=== PATIENT | female | born 2005 | race Two or more races ===

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

== ENCOUNTER 2025-02-05 15:12 | Emergency (ER) | payer SELFPAY ==
[2025-02-05 15:18] VITALS: BP 131/73; PULSE 102; RESP 16; TEMP 36.8; O2SAT 97
--- NOTE | 2025-02-05 15:34 | ED_ITS ---
HPI - Ear Problem General Chief complaint: Ear Stated complaint: headache/right ear pain Time Seen by Provider: 02/05/25 15:34 Source: patient Mode of arrival: ambulatory Limitations: no limitations History of Present Illness HPI Narrative: 19-year-old female presented for complaint of sore throat and right ear pain and headache. Onset yesterday. Not taking anything for symptoms. Denies shortness of breath, wheezing, nausea, vomiting, dizziness, tinnitus or fever. MD Complaint: ear pain Related Data Home Medications ?Medication ?Instructions ?Recorded ?Confirmed ?Last Taken ?Type guanfacine 1 mg tablet 1 mg PO QID PRN Cough 08/29/22 02/05/25 Unknown History methylphenidate HCl 54 mg 54 mg PO DAILY 08/29/22 02/05/25 Unknown History tablet,extended release 24 hr (Concerta) quetiapine 100 mg tablet 100 mg PO DAILY 08/29/22 02/05/25 Unknown History quetiapine 25 mg tablet 25 mg PO DAILY 08/29/22 02/05/25 Unknown History norgestimate 0.25 mg-ethinyl tablet 03/15/24 Unknown History estradiol 0.035 mg tablet (Estarylla) Allergies Allergy/AdvReac Type Severity Reaction Status Date / Time No Known Allergies Allergy Verified 02/05/25 15:14 Review of Systems Review of Systems: CONSTITUTIONAL: Denies malaise, chills, or fever. EYES: Denies visual changes, redness, or discharge. ENT: Denies rhinorrhea, congestion, sinus pain, Reports ear pain, sore throat CARDIOVASCULAR: Denies chest pain, palpitations, or edema. RESPIRATORY: Denies cough or dyspnea. GASTROINTESTINAL: Denies abdominal pain, nausea, vomiting, diarrhea SKIN: Denies rash or itching. MUSCULOSKELETAL: Denies myalgia. NEUROLOGIC: reports headache. All systems reviewed & are unremarkable except as noted in HPI and below PMFSH Past Medical History Medical History ADHD (attention deficit hyperactivity disorder) Bipolar 1 disorder, mixed Oppositional defiant disorder Social History Social History Living arrangements: with family Occupation/Education: student Gender identity (if verbalized by the patient): Female Comments At time of signature, agree with nursing past medical, surgical, social and family history. There is no relevant family history pertinent to the presenting complaint Exam Narrative: GENERAL: Well-appearing EYES: conjunctivae clear ENT: Nares clear. Mucous membranes moist. TM pearly cannon with dull light reflex bilaterally; no tragal tenderness. Oropharynx erythematous without lesions. Tonsils enlarged with exudate, no drooling, no hoarseness, no trismus, uvula midline. NECK: Supple. No lymphadenopathy CHEST: Clear to auscultation, breath sounds equal. No wheezing, rhonchi, rales, or stridor. No respiratory distress, speaks in full sentences. HEART: Regular rate and rhythm. No murmur heard. SKIN: Warm, dry, no rash. NEURO: Alert and oriented x3. PSYCH: Normal mood and affect Course Course Emergency Course: Patient is aware of diagnosis, understands and agrees to treatment plan. Anticipatory guidance given. Patient agrees to follow-up as directed and is aware of reasons to seek care at the emergency department. Portions of this record may have been created with voice recognition software Level of Care: Express Care Visit Vital Signs Vital signs: Vital Signs Temperature 98.2 F 02/05/25 15:18 Pulse Rate 102 H 02/05/25 15:18 Respiratory Rate 16 02/05/25 15:18 Blood Pressure 131/73 02/05/25 15:18 Pulse Oximetry 97 02/05/25 15:18 Oxygen Delivery Room Air 02/05/25 15:18 Temperature 98.2 F 02/05/25 15:18 Pulse Rate 102 H 02/05/25 15:18 Respiratory Rate 16 02/05/25 15:18 Blood Pressure 131/73 02/05/25 15:18 Pulse Oximetry 97 02/05/25 15:18 Oxygen Delivery Room Air 02/05/25 15:18 Reviewed Medical Decision Making MDM Narrative Medical decision making narrative: Negative strep in clinic, however will treat at this time based on PE and CC. Advised supportive measures and signs/symptoms to go to the ER. Patient is appropriate for outpatient treatment and follow-up. Differential Diagnosis Differential Diagnosis: Coronavirus, strep pharyngitis, allergic rhinitis, upper respiratory tract infection, sinusitis, rhinosinusitis, nasopharyngitis, viral pharyngitis, otitis media, otitis externa, eustachian tube dysfunction, foreign body, cerumen impaction. Vital Signs Vital Signs: Vital Signs Temperature 98.2 F 02/05/25 15:18 Pulse Rate 102 H 02/05/25 15:18 Respiratory Rate 16 02/05/25 15:18 Blood Pressure 131/73 02/05/25 15:18 Pulse Oximetry 97 02/05/25 15:18 Oxygen Delivery Room Air 02/05/25 15:18 Temperature 98.2 F 02/05/25 15:18 Pulse Rate 102 H 02/05/25 15:18 Respiratory Rate 16 02/05/25 15:18 Blood Pressure 131/73 02/05/25 15:18 Pulse Oximetry 97 02/05/25 15:18 Oxygen Delivery Room Air 02/05/25 15:18 Discharge Plan Discharge Clinical Impression: Exudative tonsillitis Patient Disposition: Home, Self-Care Condition: Stable Instructions: Antibiotic Form, Strep Throat (ED) Additional Instructions: - Take the antibiotic as directed. Fever and sore throat typically resolve within one to three days. Most patients can return to work, after 12 to 24 hours of antibiotic therapy, provided you are fever free and otherwise well. -Eat and drink things that are easy to swallow, like soft foods, cool liquids, tea with honey, or popsicles . -Salt water gargles and/or may use topical anesthetic ( Chloraseptic spray) or l ozenges to relieve dryness or throat pain -Alternate Tylenol and ibuprofen as needed for pain and fever as directed. -Frequent hand washing or hand chip mixing machine operator is one of the best ways to prevent spread of infection. Throw away the toothbrush after 24hours of antibiotic. -Follow up with primary care provider in 2-3 days if condition is not improving -Go to the ER if you have trouble breathing, cannot drink enough fluids, have muffled voice or drooling, difficulty opening your mouth, or severe swelling. Patient Language: Danish Prescriptions: New amoxicillin 500 mg tablet 1,000 mg PO DAILY 10 Days Qty: 20 0RF No Action quetiapine 25 mg tablet 25 mg PO DAILY methylphenidate HCl [Concerta] 54 mg tablet extended release 24hr 54 mg PO DAILY quetiapine 100 mg tablet 100 mg PO DAILY guanfacine 1 mg tablet 1 mg PO QID PRN (Reason: Cough) norgestimate-ethinyl estradiol [Estarylla] 0.25-35 mg-mcg tablet Follow-up/Referrals: Yenifer,Cheryl Corbett MD [Primary Care Provider] - Time of Disposition: 15:50
[2025-02-05 15:57] LABS: EDSTREPNEGPOS1 Negative (Negative)
--- OUTSIDE RECORDS SUMMARY | 2025-02-05 16:29 | XMS_ITS | Clinical Summary ---
Author Organization [facility] Address [address] [place] [address] Care Team Providers Care Geriatric Case Manager Name Role Phone Cheryl Street MD Primary Care Provider [phone] Source Comments [facility],non-owned Affiliates and Associated Physician Practices is amultiple site organization consisting of ambulatory clinics and hospital sitesin [place], [place] and [place]. This disclosure is being madepursuant to the Care Everywhere program and may not contain all information available regarding this patient. Last updated 18.[facility] Allergies No known active allergies Medications * Be aware that medications may not be up to date on this document. Alwaysverify current medications with the patient. Medication Sig Dispensed Refills Start Date End Date Status guanFACINE CR 24hr (Intuniv) 1 MG tablet Take 2 (two) tablets by mouth 2 times daily Active Concerta 54 MG tablet 11/16/2022 Act kleber QUEtiapine (SEROquel) 100 MG tablet 11/16/2022 Active QUEtiapine (SEROquel) 25 MG tablet 11/17/2022 Active Mavyret 100-40 MG tablet TAKE 3 TABLETS BY MOUTH ONCE DAILY WITH FOOD FOR 56 DAYS. TAKE ALL 3 TABLETS AT THE SAME TIME 05/04/2023 Active Active Problems Problem Noted Date Diagnosed Date Anxiety disorder 05/15/2023 Depression 05/15/2023 Overweight 02/23/2023 Hepatitis C virus infection cured after antiviral drug therapy 02/23/2023 Resolved Problems Problem Noted Date Diagnosed Date Resolved Date Hepatitis C virus infection without hepatic coma 02/23/2023 08/16/2023 Family History Medical History Relation Name Comments Hepatitis Mother Relation Name Status Comments Mother Social History Tobacco Use Types Packs/Day Years Used Date Smoking Tobacco: Never Passive Smoke Exposure: Never Smokeless Tobacco: Never Tobacco Cessation:Counseling Given: No Alcohol Use Standard Drinks/Week Comments Never 0 (1 standard drink = 0.6 oz pur e alcohol) Sex and Gender Information Value Date Recorded Sex Assigned at Not on file Gender Identity Not on file Sexual Orientation Not on file Last Filed Vital Signs Vital Sign Reading Time Taken Comments Blood Pressure 122/64 05/15/2023 2:05 PM CDT Pulse - - Temperature - - Respiratory Rate - - Oxygen Saturation - - Inhaled Oxygen Concentration - - Weight 84.8 kg (187 lb) 05/15/2023 2:05 PM CDT Height 151 cm (4' 11.45 ) 05/15/2023 2:05 PM CDT Body Mass Index 37.2 05/15/2023 2:05 PM CDT Body Mass Index Percentile 98.37% 05/15/2023 2:0 5 PM CDT Growth Chart: [facility] (Girls, 2- 20 Years) Plan of Treatment Health Maintenance Due Date Last Done Comments HIV SCREENING 2020 HPV VACCINE (1 - 3-dose series) 2020 CHLAMYDIA/GONORRHEA SCREENING 2021 MENINGOCOCCAL (Group B) VACCINE SHARED DECISION-MAKING (1 of 2 - Standard) 2021 DTAP/TDAP/TD VACCINES (1 - Tdap) 2024 HEPATITIS B VACCINE (1 of 3 - 19+ 3-dose series) 2024 COVID-19 VACCINE (3 - 2023- season) 2024 07/06/2021, 06/15/2021 INFLUENZA VACCINE (#1) 2024 , 12/31/2019, 10/05/2018, Additional history exists DEPRESSION SCREENING 11/06/2024 ZOSTER VACCINE (1 of 2) 2055 HEPATITIS C SCREENING Completed 08/16/2023 , 05/15/2023, 02/23/2023, Additional history exists HIB VACCINE Aged Out No longer eligi ble based on patient's age to complete this topic MENINGOCOCCAL GROUPS A/C/Y/W VACCINE Aged Out No longer eligible based on patient's age to complete this topic PNEUMOCOCCAL VACCINE Aged Out No long er eligible based on patient's age to complete this topic Care Teams Geriatric Case Manager Relationship Specialty Start Date End Date Cheryl Street MD 2 [facility] [address] [place] [id number] PCP - General Pediatrics 11/24/22
--- OUTSIDE RECORDS SUMMARY | 2025-02-05 16:29 | XMS_ITS | Referral Summary ---
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 Gender Identity Not on file Sexual Orientation Not on file Last Filed Vital Signs Vital Sign Reading Time Taken Comments Blood Pressure 132/57 08/12/2023 9:20 AM CDT Pulse 87 08/12/2023 9:20 AM CDT Temperature 37.3 C (99.2 F) 08/12/2023 9:20 AM CDT Respiratory Rate 16 08/12/2023 9:20 AM CDT Oxygen Saturation 100% 08/12/2023 9:20 AM CDT Inhaled Oxygen Concentration - - Weight 81.2 kg (179 lb) 08/12/2023 9:20 AM CDT Height 162.6 cm (5' 4 ) 08/12/2023 9:20 AM CDT Body Mass Index 30.73 08/12/2023 9:20 AM CDT Body Mass Index Percentile 95.19% 08/12/2023 9:2 0 AM CDT Growth Chart: [facility] (Girls, 2- 20 Years) Plan of Treatment Not on file Procedures Procedure Name Priority Date/Time Associated Diagnosis Comments HEPATITIS C RNA, QUANTITATIVE, PCR Routine 08/12/2023 8:53 AM CDT from Last 3 Months or Most Recently Relevant to Health Maintenance Results * Hepatitis C (HCV) RNA PCR, quantitative Blood (08/12/2023 8:53 AM CDT) [facility] HCV RNA result Not Detected [facility] Comment: The quantifiable range of this assay is 15 IU/mL to 100,000,000 IU/mL (1.18 log IU/mL to 8.00 log IU/mL). Testing was performed by the [facility] HCV Test ([employer] Testing performed at [facility] Current Interpretive Data was last revised on 2021 Testing performed by: [facility], [address] [place]., [address] Blood 08/12/2023 8:53 AM CDT 08/14/2023 10:47 AM CDT Wolfgang Mccabe MD LAB MICROBIOLOGY - GENERAL ORDERABLES Final Result [facility] ([place]) [address] [facility] Department [place] [address] [facility] from Last 3 Months or Most Recently Relevant to Health Maintenance Insurance [facility] Care Teams C Software Engineer Relationship Specialty Start Date End Date Cheryl Street MD PCP - General 09/25/21
--- OUTSIDE RECORDS SUMMARY | 2025-02-05 16:29 | XMS_ITS | Clinical Summary ---
Author Organization [facility] Address [address] [place] [address] Care Team Providers Care Technical Sme Name Role Phone Cheryl Street MD Primary Care Pro vider Allergies No known active allergies Medications No known medications Active Problems No known active problems Medical History Medical History Date Comments Bipolar 1 disorder (HCC) Social History Tobacco Use Types Packs/Day Years Used Date Smoking Tobacco: Never Smokeless Tobacco: Never Personal Safety Answer Date Recorded Getting School Help Needed Not on file 08/25 Comments No Sex and Gender Information Value Date Recorded Sex Assigned at Not on file 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 Gender Identity Not on file Sexual Orientation Not on file Obstetrics History Growth Chart Information Age Height Weight [id number]-mweq th Percentile BMI Percentile Head Circum Head Circum Percentile Date 18 years 162.6 cm (5' 4 ) 81.2 kg (179 lb) 95.19%* 2022 16 years 152.4 cm (5') 62.1 kg (136 lb 14.5 oz) 91.20%* 2020 * [facility] (Girls, 2-20 Years) Last Filed Vital Signs Vital Sign Reading [...] 08/12/2023 9:2 0 AM CDT Growth Chart: [facility] (Girls, 2- 20 Years) Plan of Treatment Health Maintenance Due Date Last Done Comments Depression Screening 2005 Meningococcal B Vaccine (1 o f 2 - Standard) 2021 Regular Well Visit/Exam 18-64 2023 Covid-19 Vaccine (3 - 2023-2 5 season) 2024 07/06/2021, 06/15/2021 Influenza Vaccine (#1) 2024 , 12/31/2019, 10/05/2018, Additional history exists DTaP/Tdap/Td Vaccine (7 - Td or Tdap) 07/14/2025 07/14/2015, 02/09/2010, 10/13/2006, Additional history exists Hepatitis B Screening Completed 01/10/2006 , 2005, 2005, Additional history exists Pneumococcal vaccine <65 Completed 006, 01/10/2006, 2005, Additional history exists Varicella Vaccines Completed 02/09/2010, 07/14/2006 HPV Vaccines Completed 07/26/2017, 07/15/2016 Meningococcal Vaccine Completed 01/20/2023, 016 Hepatitis C Screening Completed 08/12/2023, 023 Procedures Procedure Name Priority Date/Time Associated Diagnosis Comments HEPATITIS C RNA, QUANTITATIVE, PCR Routine 08/12/2023 8:53 AM CDT from Last 3 Months or Most Recently Relevant to Health Maintenance Results * Hepatitis C (HCV) RNA PCR, quantitative Blood (08/12/2023 8:53 AM CDT) [facility] HCV RNA result Not Detected [facility] Comment: The quantifiable range of this assay is 15 IU/mL to 100,000,000 IU/mL (1.18 log IU/mL to 8.00 log IU/mL). Testing was performed by the [facility] HCV Test ([employer] Testing performed at [facility] Current Interpretive Data was last revised on 2021 Testing performed by: [facility], [address] [place]., [address] Blood 08/12/2023 8:53 AM CDT 08/14/2023 10:47 AM CDT Wolfgang Mccabe MD LAB MICROBIOLOGY - GENERAL ORDERABLES Final Result [facility] ([place]) [address] [facility] Department [place] [address] [facility] from Last 3 Months or Most Recently Relevant to Health Maintenance Insurance [place] [employer] [place] Care Teams Technical Sme Relationship Specialty Start Date End Date Cheryl Street MD PCP - General 09/25/21
--- OUTSIDE RECORDS SUMMARY | 2025-02-05 16:29 | XMS_ITS | Clinical Summary ---
Author Organization [facility] Address [address] [place] [address] Phone Care Team Providers Care International Accounting Manager Name Role Phone Cheryl Street MD Primary Care Provider [phone] Allergies No known active allergies Medications guanFACINE (INTUNIV) 1 mg Extended Release 24 hour tablet Take 2 mg by mouth 2 times daily. Active methylphenidate HCl (CONCERTA) 54 mg Extended Release tablet Take 54 mg by mouth daily in the morning. 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 Gender Identity Not on file Sexual Orientation Not on file Last Filed Vital Signs Vital Sign Reading Time Taken Comments Blood Pressure 117/62 09/15/2020 6:59 PM SURVEYOR HYDROGRAPHIC Pulse 78 09/15/2020 9:44 PM SURVEYOR HYDROGRAPHIC Temperature 37.3 C (99.1 F) 09/15/2020 6:59 PM SURVEYOR HYDROGRAPHIC Respiratory Rate 18 09/15/2020 9:44 PM SURVEYOR HYDROGRAPHIC Oxygen Saturation 98% 09/15/2020 9:44 PM SURVEYOR HYDROGRAPHIC Inhaled Oxygen Concentration - - Weight 53.2 kg (117 lb 4.6 oz) 09/15/2020 6:59 P M SURVEYOR HYDROGRAPHIC Height - - Body Mass Index - - Plan of Treatment Health Maintenance Due Date Last Done Comments CHLAMYDIA SCREENING (ANNUAL) 11-24 YEARS 2016 HPV VACCINES (1 - 3-dose series) 2020 INFLUENZA VACCINE (#1) 2024 DTAP/TDAP/TD VACCINES (1 - Tdap) 2024 HEPATITIS B VACCINES (1 of 3 - 19+ 3-dose series) 2024 PNEUMOCOCCAL VACCINE 0-49 YEARS Aged Out No longer eligible based on patient's age to complete this topic Insurance Care Teams International Accounting Manager Relationship Specialty Start Date End Date Cheryl Street MD PCP - General Pediatrics 09/15/20
== END 2025-02-05 15:54 | disposition home or self-care (01) ==
PROVIDERS: Emergency Provider Nurse Practitioner Family; PCP Pediatrics
DX: J03.90 Acute tonsillitis, unspecified (principal); F90.9 Attention-deficit hyperactivity disorder, unspecified type; F31.9 Bipolar disorder, unspecified
CPT/HCPCS: 87081; 87880; 99213; G0463

== ENCOUNTER 2025-06-07 13:01 | Emergency (ER) | payer SELFPAY ==
--- OUTSIDE RECORDS SUMMARY | 2025-06-07 13:03 | XMS_ITS | Clinical Summary ---
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 Gender Identity Not on file Sexual Orientation Not on file Obstetrics History Growth Chart Information Age Height Weight Oqstnj-[id number]-clvb th Percentile BMI Percentile Head Circum Head Circum Percentile Date 18 years 162.6 cm (5' 4) 81.2 kg (179 lb) 95.19%* 2022 16 years 152.4 cm (5') 62.1 kg (136 lb 14.5 oz) 91.20%* 2020 * [facility] (Girls, 2-20 Years) Last Filed Vital Signs [...] 9:20 AM CDT Height 162.6 cm (5' 4) 08/12/2023 9:20 AM CDT Body Mass Index 30.73 08/12/2023 9:20 AM CDT Body Mass Index Percentile 95.19% 08/12/2023 9:2 0 AM CDT Growth Chart: [facility] (Girls, 2- 20 Years) Plan of Treatment Health Maintenance Due Date Last Done Comments Depression Screening 2005 Meningococcal B Vaccine (1 o f 2 - Standard) 2021 Regular Well Visit/Exam 18-64 2023 Covid-19 Vaccine (3 - 2023-2 5 season) 2024 07/06/2021, 06/15/2021 Influenza Vaccine (#1) 2025 , 12/31/2019, 10/05/2018, Additional history exists DTaP/Tdap/Td [...] PCR, quantitative Blood (08/12/2023 8:53 AM CDT) [facility] HCV RNA result Not Detected [facility] Comment: The quantifiable range of this assay is 15 IU/mL to 100,000,000 IU/mL (1.18 log IU/mL to 8.00 log IU/mL). Testing was performed by the [facility] HCV Test ([employer] Testing performed at [facility] Current Interpretive Data was last revised on 2021 Testing performed by: [facility], [address] [place]., [address] Blood 08/12/2023 8:53 AM CDT 08/14/2023 10:47 AM CDT Wolfgang Mccabe MD LAB MICROBIOLOGY - GENERAL ORDERABLES Final Result [facility] ([place]) [address] [facility] [place] [address] [facility] from Last 3 Months or Most Recently Relevant to Health Maintenance Insurance OR YOUTHCARE OR YOUTHCARE Care Teams Clinical Director Relationship Specialty Start Date End Date Cheryl Street MD PCP - General 09/25/21
--- OUTSIDE RECORDS SUMMARY | 2025-06-07 13:03 | XMS_ITS | Clinical Summary ---
Author Organization [facility] Address [address] [place] [address] Phone Care Team Providers Care Mineral Resources Inspector Name Role Phone Cheryl Street MD Primary Care Provider [phone] Allergies No known active allergies Medications guanFACINE (INTUNIV) 1 mg Extended Release 24 hour tablet Take 2 mg by mouth 2 times daily. Active methylphenidate HCl (CONCERTA) 54 mg Extended Release tablet Take 54 mg by mouth daily in the morning. 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 Gender Identity Not on file Sexual Orientation Not on file Last Filed Vital Signs Vital Sign Reading Time Taken Comments Blood Pressure 117/62 09/15/2020 6:59 PM BIBLE TEACHER Pulse 78 09/15/2020 9:44 PM BIBLE TEACHER Temperature 37.3 C (99.1 F) 09/15/2020 6:59 PM BIBLE TEACHER Respiratory Rate 18 09/15/2020 9:44 PM BIBLE TEACHER Oxygen Saturation 98% 09/15/2020 9:44 PM BIBLE TEACHER Inhaled Oxygen Concentration - - Weight 53.2 kg (117 lb 4.6 oz) 09/15/2020 6:59 P M BIBLE TEACHER Height - - Body Mass Index - - Plan of Treatment Health Maintenance Due Date Last Done Comments CHLAMYDIA SCREENING (ANNUAL) 11-24 YEARS 2016 HPV VACCINES (1 - 3-dose series) 2020 DTAP/TDAP/TD VACCINES (1 - Tdap) 2024 HEPATITIS B VACCINES (1 of 3 - 19+ 3-dose series) 06/07 INFLUENZA VACCINE (#1) 2025 Insurance Care Teams Mineral Resources Inspector Relationship Specialty Start Date End Date Cheryl Street MD PCP - General Pediatrics 09/15/20
--- OUTSIDE RECORDS SUMMARY | 2025-06-07 13:03 | XMS_ITS | Referral Summary ---
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 Gender Identity Not on file Sexual Orientation [...] 08/12/2023 9:2 0 AM CDT Growth Chart: [facility] (Girls, 2- 20 Years) Plan of Treatment Not on file Procedures Procedure Name Priority Date/Time Associated Diagnosis Comments HEPATITIS C RNA, QUANTITATIVE, PCR Routine 08/12/2023 8:53 AM CDT from Last 3 Months or Most Recently Relevant to Health Maintenance Results * Hepatitis C (HCV) RNA PCR, quantitative Blood (08/12/2023 8:53 AM CDT) [facility] HCV RNA result Not Detected [facility] Comment: The quantifiable range of this assay is 15 IU/mL to 100,000,000 IU/mL (1.18 log IU/mL to 8.00 log IU/mL). Testing was performed by the [facility] HCV Test ([employer] Testing performed at [facility] Current Interpretive Data was last revised on 2021 Testing performed by: [facility], [address] [place]., [address] Blood 08/12/2023 8:53 AM CDT 08/14/2023 10:47 AM CDT Wolfgang Mccabe MD LAB MICROBIOLOGY - GENERAL ORDERABLES Final Result [facility] ([place]) [address] [facility] [place] [address] [facility] from Last 3 Months or Most Recently Relevant to Health Maintenance Insurance [facility] [place] [facility] Care Teams Cafe Server Relationship Specialty Start Date End Date Cheryl Street MD PCP - General 09/25/21
--- OUTSIDE RECORDS SUMMARY | 2025-06-07 13:03 | XMS_ITS | Clinical Summary ---
Author Organization [facility] Address [address] [facility] [place] [address] Care Team Providers Care Doughnut Machine Operator Name Role Phone Cheryl Street MD Primary Care Provider [phone] Source Comments [facility],non-owned Affiliates and Associated Physician Practices is amultiple site organization consisting of ambulatory clinics and hospital sitesin [place], [place], [place] and [place]. This disclosure is being madepursuant to the Care Everywhere program and may not contain all information available regarding this patient. Last updated 18.[facility] Allergies No known active allergies Medications * Be aware that medications may not be up to date on this document. Alwaysverify current medications with the patient. 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 Gender Identity Not on file Sexual Orientation Not on file Last Filed Vital Signs Vital Sign Reading Time Taken Comments Blood Pressure 122/64 05/15/2023 2:05 PM CDT Pulse - - Temperature - - Respiratory Rate - - Oxygen Saturation - - Inhaled Oxygen Concentration - - Weight 84.8 kg (187 lb) 05/15/2023 2:05 PM CDT Height 151 cm (4' 11.45) 05/15/2023 2:05 PM CDT Body Mass Index 37.2 05/15/2023 2:05 PM CDT Body Mass Index Percentile 98.37% 05/15/2023 2:0 5 PM CDT Growth Chart: [facility] (Girls, 2- 20 Years) Plan of Treatment [...] (3 - 2023- season) 2024 07/06/2021, 06/15/2021 DEPRESSION SCREENING 11/06/2024 INFLUENZA VACCINE (#1) 2025 , 12/31/2019, 10/05/2018, Additional history exists ZOSTER VACCINE (1 of 2) 2055 HEPATITIS [...] patient's age to complete this topic Insurance YOUTH CARE Care Teams Doughnut Machine Operator Relationship Specialty Start Date End Date Cheryl Street MD [address] [facility] [address] [place] [id number] PCP - General Pediatrics 11/24/22
[2025-06-07 13:06] VITALS: BP 125/70; PULSE 74; RESP 16; TEMP 36.9; O2SAT 100
--- NOTE | 2025-06-07 13:43 | ED_ITS ---
HPI - General Adult General Chief complaint: Skin/Abscess/Foreign Body Stated complaint: Skin Sore/Left Arm Source: patient Mode of arrival: ambulatory Limitations: no limitations History of Present Illness HPI narrative: Patient presents for evaluation of a painful and pruritic area of redness to her left upper arm for the last 3 days. She 1st noticed what appeared to be a pustule in the area. She applied pressure and some clear fluid was expressed. The area is now increasing in size. No fever, chills, nausea, vomiting. She has not tried any therapies to assist with her symptoms. Related Data Home Medications ?Medication ?Instructions ?Recorded ?Confirmed ?Last Taken ?Type guanfacine 1 mg tablet 1 mg PO QID PRN Cough 08/29/22 02/05/25 Unknown History methylphenidate HCl 54 mg 54 mg PO DAILY 08/29/22 02/05/25 Unknown History tablet,extended release 24 hr (Concerta) quetiapine 100 mg tablet 100 mg PO DAILY 08/29/22 02/05/25 Unknown History quetiapine 25 mg tablet 25 mg PO DAILY 08/29/22 02/05/25 Unknown History norgestimate 0.25 mg-ethinyl tablet 03/15/24 Unknown History estradiol 0.035 mg tablet (Estarylla) Allergies Allergy/AdvReac Type Severity Reaction Status Date / Time No Known Allergies Allergy Verified 02/05/25 15:14 Review of Systems Review of Systems: CONSTITUTIONAL: Denies fever, chills, or sweats. EYES: Denies visual changes, redness, or discharge. ENT: Denies rhinorrhea, congestion, sore throat, or otalgia. CARDIOVASCULAR: Denies chest pain, palpitations, or edema. RESPIRATORY: Denies cough or dyspnea. GASTROINTESTINAL: Denies abdominal pain, nausea, vomiting, or diarrhea. GENITOURINARY: Denies dysuria or hematuria. SKIN: Reports pruritic area of redness to her left upper arm MUSCULOSKELETAL: Reports pain in left upper arm in the area of the redness. Denies back pain or joint pain NEUROLOGIC: Denies headache, numbness, dizziness, or weakness. PSYCHIATRIC: Denies anxiety or depression. [facility], [facility] Past Medical History Medical History Oppositional defiant disorder Bipolar 1 disorder, mixed ADHD (attention deficit hyperactivity disorder) Surgical History Surgical History (Updated 06/07/25 @ 13:56 by Julio Dillon, CHRISTINA, ) No pertinent past surgical history Social History Social History Living arrangements: with family Occupation/Education: student Gender identity (if verbalized by the patient): Female Exam Narrative: GENERAL: Well-appearing, well-nourished, and in no acute distress. HEAD: Normocephalic, atraumatic. EYES: PERRLA and EOMI. ENT: Nares clear, no rhinorrhea or epistaxis. Mucous membranes moist. Oropharynx without tonsillar hypertrophy exudate or other lesions. Bilateral TMs pearly cannon nonbulging NECK: Supple. No adenopathy or masses. No carotid bruits or JVD CHEST: Clear to auscultation. No respiratory distress. No wheezes rales or rhonchi HEART: Regular rate and rhythm. No murmur heard. Normal peripheral pulses. ABDOMEN: Soft, nontender, nondistended, normal active bowel sounds. EXTREMITIES: Normal range of motion. No edema. SKIN: There is a puncture barney noted to the left upper arm with a by 6 cm area of erythema surrounding in an annular formation NEURO: No focal deficits. Alert and oriented x3. PSYCH: Normal mood and affect. Course Course Emergency Course: This is a 19 year old female who presented for evaluation of pain, itching and redness in the left upper arm. This appears to be from an insect bite. Unclear whether allergic or infectious response. Will cover with abx and have her take benadryl. Follow up with primary provider. Go to the ER for worsening symptoms. Pt in agreement with plan of care. Level of Care: Express Care Visit Vital Signs Vital signs: Vital Signs Temperature 36.9 C 06/07/25 13:06 Pulse Rate 74 06/07/25 13:06 Respiratory Rate 16 06/07/25 13:06 Blood Pressure 125/70 06/07/25 13:06 Pulse Oximetry 100 06/07/25 13:06 Oxygen Delivery Room Air 06/07/25 13:06 Temperature 36.9 C 06/07/25 13:06 Pulse Rate 74 06/07/25 13:06 Respiratory Rate 16 06/07/25 13:06 Blood Pressure 125/70 08/02/25 13:06 Pulse Oximetry 100 06/07/25 13:06 Oxygen Delivery Room Air 06/07/25 13:06 Medical Decision Making Vital Signs Vital Signs: Vital Signs Temperature 36.9 C 06/07/25 13:06 Pulse Rate 74 06/07/25 13:06 Respiratory Rate 16 06/07/25 13:06 Blood Pressure 125/70 06/07/25 13:06 Pulse Oximetry 100 06/07/25 13:06 Oxygen Delivery Room Air 06/07/25 13:06 Temperature 36.9 C 06/07/25 13:06 Pulse Rate 74 06/07/25 13:06 Respiratory Rate 16 06/07/25 13:06 Blood Pressure 125/70 06/07/25 13:06 Pulse Oximetry 100 06/07/25 13:06 Oxygen Delivery Room Air 06/07/25 13:06 Discharge Plan Discharge Clinical Impression: Insect bite Patient Disposition: Home Condition: Stable Instructions: Antibiotic Form, Insect Bite or Sting (ED) Patient Language: Vietnamese Prescriptions: New cephalexin 500 mg capsule 500 mg PO Q6H Qty: 40 0RF sulfamethoxazole-trimethoprim [Bactrim DS] 800-160 mg tablet 1 tablet PO Q12H Qty: 20 0RF diphenhydramine HCl [Benadryl Allergy] 25 mg tablet 25 - 50 mg PO Q4-6H PRN (Reason: itching) Qty: 30 0RF No Action quetiapine 25 mg tablet 25 mg PO DAILY methylphenidate HCl [Concerta] 54 mg tablet extended release 24hr 54 mg PO DAILY quetiapine 100 mg tablet 100 mg PO DAILY guanfacine 1 mg tablet 1 mg PO QID PRN (Reason: Cough) norgestimate-ethinyl estradiol [Estarylla] 0.25-35 mg-mcg tablet amoxicillin 500 mg tablet 1,000 mg PO DAILY 10 Days Qty: 20 0RF Follow-up/Referrals: Yenifer,Cheryl Corbett MD [Primary Care Provider] - Time of Disposition: 13:28
== END 2025-06-07 13:34 | disposition home or self-care (01) ==
PROVIDERS: Emergency Provider Nurse Practitioner; PCP Pediatrics
DX: S40.862A Insect bite (nonvenomous) of left upper arm, initial encounter (principal); W57.XXXA Bitten or stung by nonvenomous insect and other nonvenomous arthropods, initial encounter; F90.9 Attention-deficit hyperactivity disorder, unspecified type; F31.9 Bipolar disorder, unspecified
CPT/HCPCS: 99213; G0463